=== PATIENT | female | born 2000 | race Caucasian/White ===

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

== ENCOUNTER 2019-10-06 23:34 | Emergency (ER) | payer OTHER, BC ==
[~2019-10-06] VITALS: Ht 172.7 cm; Wt 68.0 kg
--- NOTE | 2019-10-07 07:54 | EKG ---
[facility] [address] [facility] [place] [address] Signed Sinus tachycardia T wave abnormality, consider inferior ischemia Abnormal ECG No previous ECGs available Confirmed by HENOK KEY MD ([id number]) on 10/07/2019 7:54:14 AM Electronically Signed By: HENOK KEY MD 10/07/19 0754 PATIENT NAME: SERAFIN BALTAZAR Electrocardiogram DATE OF : 89 PHYSICIAN: HENOK KEY MD REPORT #: [id number] REPORT IS CONFIDENTIAL AND NOT TO BE RELEASED WITHOUT AUTHORIZATION
== END 2019-10-07 01:08 | disposition home or self-care (01) ==
LOC: ED 23:34
DX: R00.2 Palpitations (principal)
CPT/HCPCS: 80053; 83735; 84484; 84703; 85025; 85379; 93005; 93010; 99285-25

== ENCOUNTER 2021-02-22 19:22 | Emergency (ER) | payer OTHER, BC ==
[~2021-02-22] VITALS: Ht 172.7 cm; Wt 79.4 kg
== END 2021-02-22 22:19 | disposition home or self-care (01) ==
LOC: ED 19:22
DX: E86.0 Dehydration (principal)
CPT/HCPCS: 80053; 84703; 85025; 96374; 99284-25; J2405; J7030